=== PATIENT | female | born 1985 | race Caucasian/White ===

== ENCOUNTER 2021-11-18 18:06 | Observation (INO) | payer MEDICAID, SELFPAY ==
[2021-11-18 17:30] VITALS: BMI 34.0
--- NOTE | 2021-11-18 18:10 | PCM.HP.STD ---
HPI - General General Date of Admission: 11/18/21 HPI Narrative RADHA VALLE, is a 35 F who presents with a large left UPJ stone 1 cm in size, admitted for pain control plan for treatment of stone tomorrow in the OR. pt. agreeable with plan. PFSH Home Medications docusate sodium [Colace] 100 mg PO BID PRN PRN #60 capsule 04/16/16 [Rx Last Taken Unknown] oxycodone 5 - 10 mg PO Q4H PRN PRN #30 tablet 04/16/16 [Rx Last Taken Unknown] vit,[id number] [Prenatabs FA] 1 tab PO DAILY 04/16/16 [History Last Taken 04/15/16 09:00] Allergy/AdvReac Type Severity Reaction Status Date / Time No Known Allergies Allergy Verified 04/16/16 00:03 Social History Smoking Status: Current every day smoker tobacco type: cigarettes ROS Constitutional Constitutional: Denies chills, fever(s) or malaise Eyes Eyes: Denies blurry vision or change in vision ENT HEENT: Reports none Cardiovascular Cardiovascular: Denies chest pain or palpitations Respiratory/Chest Respiratory/Chest: Denies cough or shortness of breath with exertion Gastrointestinal Gastrointestinal: Denies abdominal pain, constipation or diarrhea Musculoskeletal Musculoskeletal: Denies back pain, joint stiffness or joint swelling Integumentary Integumentary: Denies dry skin, jaundice, lesions or rash Neurologic Neurologic: Denies confusion, syncope or weakness Psychiatric Psychiatric: Reports none; Denies anxiety or depression Endocrine Endocrinology: Denies excessive sweating, fatigue or flushing Hematologic/Lymphatic Hematologic/Lymphatic: Denies anemia, easy bleeding or easy bruising Vital Signs Vital Signs Vital Signs: Weight Weight: 84.55 kg Body Mass Index (BMI) 34.0 Physical Exam Const alert and oriented x3 General Appearance: cooperative HEENT normocephalic, head/scalp atraumatic, EAC's normal and TM's normal bilaterally Eyes PERRL and EOMs intact bilaterally Pupil: sluggish Neck no lymphadenopathy, supple and no JVD General: trachea midline Lymph Lymphatic: no lymphadenopathy noted, lymphedema and lymphadenopathy Resp normal respiratory effort, normal air movement and clear to auscultation bilaterally Cardio regular rate, regular rhythm and peripheral pulses 2+ throughout GI soft to palpation, non-tender and non-distended Extremity normal capillary refill and no clubbing, cyanosis or edema General Extremity: no tenderness to palpation of joints or extremities Skin no rashes or lesions noted General Skin Exam: turgor normal Lesions: no lesions Rashes: no rashes Neuro CN's II-XII intact bilaterally Speech: speech normal Motor Exam: strength 5/5 throughout; Negative for general weakness Psych thought process normal, cooperative and affect normal Appearance: appropriate Assessment & Plan Assessment/Plan (1) Kidney stone on left side:
[2021-11-18] MEDS: Ondansetron 4 MG/2 ML Vial IV (18:26)
[2021-11-18] MEDS: Morphine 2 MG/ML Syringe IV (18:26)
[2021-11-18] MEDS: 0.9% Saline Lock 10 ML Syringe IV (18:27)
--- NOTE | 2021-11-18 18:35 | RAD_ITS ---
STUDY: X-RAY - ABDOMEN/PELVIS REASON FOR EXAM: Female, 35 years old. stone TECHNIQUE: 2 views of the abdomen. COMPARISON: None. FINDINGS: Normal visualized lung bases. There is an unremarkable bowel gas pattern. Scattered gas and fecal material noted within the colon. No distended small bowel loops are noted. Hepatic and splenic shadows are not enlarged. Excreted contrast noted within the intrarenal collecting systems and within the decompressed urinary bladder. Right intrarenal collecting system is not dilated. On the left, there is moderate pelvocaliectasis secondary to a 12 x 9 mm ovoid stone which lies at the ureteropelvic junction. No ureteral dilatation is seen. Surgical clips and calcified phlebolith are noted within the pelvis. Degenerative disc disease and facet arthritis noted at the L5/S1 level. RAD/Abdomen Single View IMPRESSION: Moderate left hydronephrosis due to a 12 x 9 mm stone which lies at the ureteropelvic junction. Electronically Signed: Jose Buck MD at 3:42 EDT ,
[2021-11-18 20:07] VITALS: BP 134/69; PULSE 77; RESP 16; TEMP 36.9; O2SAT 100
[2021-11-18 21:37] LABS: Internal QC Validated? YES +Cl - CLEAR BKGD; Pregnancy, Urine Negative Negative
[2021-11-18] MEDS: 0.9% Normal Saline 1,000 ML 50 ML IV (23:25)
[2021-11-19] VITALS (9 sets, daily range): BP systolic 111–139; BP diastolic 78–90; PULSE 67–101; RESP 16–18; TEMP 36.6–36.9; O2SAT 97–100; BMI 34.0
--- NOTE | 2021-11-19 12:13 | NURSING ---
Patient off unit to AC at this time.
[2021-11-19] MEDS: Cefazolin 2 GM in 0.9% Normal Saline 100 ML IV (14:32)
--- NOTE | 2021-11-19 15:03 | OP.PCM_ITS ---
Report of Operation Date of Procedure: 11/19/21 Pre-Operative Diagnosis: left UPJ stone 10mm Post-Operative Diagnosis: same Surgery/Procedure Performed:: cystoscopy left stent placement and left ESWL Description of Surgical Findings:: Patient presents to the hospital for treatment of a kidney stone with shockwave lithotripsy. In the preoperative area and x-ray was done to confirm the location of the stone. The x-ray was reviewed and the stone location was reviewed. In the preoperative setting I spoke with the patient regarding the treatment of the stone how the treatment would be conducted and the expectations after surgery. The patient understands there is a risk of bleeding and infection. Also discussed the very rare risk of hematoma or damage to the kidney. We also discussed the risk that the shockwave machine will fail to break the stone adequately and that the patient may need other surgical procedures. We also discussed the possibility that the patient may need a stent after the procedure. After reviewing the procedure with the patient, the patient is signed the consent form all the patient's questions were addressed and was taken back to the operating room for treatment of a kidney stone. Patient was taken back to the operating room after induction of general anesthesia, the patient was placed in dorsolithotomy position. The urethra and genitals were prepped and draped in usual sterile fashion. Using a 21 English rigid cystourethroscope the entire length of the urethra was normal then went into the bladder. Identified the trigone the left and right ureteral orifice. I then cannulated the Left orifice and advanced a wire up into the kidney. I then backloaded a 5 English open ended catheter over the wire and injected contrast to delineate the anatomy. After the retrograde was performed I then used fluoroscopic images and guidance to advanced a wire up into the kidney and over the 0.038 glidewire I advanced a 6 English by 26 cm double pigtail stent. I then pulled the 0.038 Glidewire off and the stent coiled in the kidney bladder good position. The bladder was then drained. We confirmed the position of the stent by fluoroscopy. We then identified the side of the treatment and the patient side of treatment had been marked by my initials. The patient underwent general anesthetic and was placed supine on the lithotripter table. We then used fluoroscopy to identify the stone on the Left side. We then positioned the patient under the lithotripter and we used triangulation technique to identify the location of the stone and then we made sure that the stone was engaged in the F2 focal point of F2 Donier lithoprior machine. Once the patient was positioned appropriately and the stone was identified and placed in the F2 focal point of the lithotripter machine we then proceeded with shockwave lithotripsy. In the beginning the shockwave was delivered at a rate of 90 shocks per minute, we monitor the EKG for any ectopy. The power was slowly increased to 5 kV and subsequently at the 7 kV. We then proceeded with the treatment we move the therapy had around during the treatment to make sure the stone stayed in the F2 focal point during the entire treatment and after 2500 shockwaves were delivered to the stone under fluoroscopic guidance the treatment was completed. The patient was given instructions to call the office to make an a follow-up appointment with an xray to evaluate the success of the treatment, pateint understands that its possible the stones may need another procedure.At this point the patient's anesthetic was reversed patient was extubated and taken back to the PACU in stable condition. Surgeon: el Type of Anesthesia: General Drains: stent left 6fr x 26cm Admit VTE Documentation VTE Present on Admission: No VTE Mechan Device Prophylaxis: SCD's VTE Pharm Prophylaxis ordered?: No
--- NOTE | 2021-11-19 15:06 | PCM.DC.SUM ---
Providers Date of Admission: 11/18/21 Reason For Visit: LEFT KIDNEY STONE Diagnosis Discharge Diagnosis (1) Kidney stone on left side: Status: Acute Code(s): N20.0 - Calculus of kidney Medications at Discharge Home Medications ciprofloxacin HCl [Cipro] 500 mg PO BID #6 tab 11/19/21 oxycodone-acetaminophen 1 tab PO Q6H PRN 7 Days #14 tab 11/19/21 Hospital Course Summary of Care Provided Hospital Course: admitted for kidney stone had ESWL and stent, stone broke up well discharger camilo today follow up in my office to remove stent Weight / BMI Weight Weight: 84.55 kg Body Mass Index (BMI) 34.0 ABG / Lab / Microbiology Data Laboratory: Laboratory Results - last 24 hr 11/18/21 21:17: Urine Test Negative Radiography Diagnostic Testing: Radiology Impression KUB X-Ray 11/18/21 18:35 IMPRESSION: Moderate left hydronephrosis due to a 12 x 9 mm stone which lies at the ureteropelvic junction. Electronically Signed: Jose Buck MD at 3:42 EDT , Meaningful Use Info Meaningful Use Diagnoses (Choose all that apply): None applicable Discharge Plan Admission Admit Date/Time: 11/18/21 18:06 Primary Reason for Your Visit: left kidney stone Attending Provider: Amaury Moulton Instructions Patient Instructions: Shock Wave Lithotripsy Discharge Orders/Prescriptions Prescriptions: New ciprofloxacin HCl [Cipro] 500 mg tablet 500 mg PO BID Qty: 6 RF: 0 oxycodone-acetaminophen 5-325 mg tablet 1 tab PO Q6H PRN (Reason: pain) 7 Days Qty: 14 RF: 0 Referrals / Follow Up: Amaury Moulton MD [STAFF PHYSICIAN] - Disposition Discharge Orders: Discharge Patient (Routine); Ordered 11/19/21 Ordered By: Dr. Amaury Moulton
--- NOTE | 2021-11-19 15:07 | PCM.DC ---
Discharge Instructions Diet Discharge Diet: No restrictions Activity Discharge Activity: Return to Normal Activity and May Not Drive (while taking narcotic pain medications.) Dressing / Incision Call your doctor if you observe: Fever of 101 or Higher Follow Up Care Please Follow Up With: Amaury Moulton MD When: Call [phone] for an appointment Test Results: Test results from this visit will be discussed in further detail at your follow-up appointment, if applicable. Discharge Plan Admission Admit Date/Time: 11/18/21 18:06 Primary Reason for Your Visit: left kidney stone Attending Provider: Amaury Moulton Instructions Patient Instructions: Shock Wave Lithotripsy Discharge Orders/Prescriptions Prescriptions: New ciprofloxacin HCl [Cipro] 500 mg tablet 500 mg PO BID Qty: 6 RF: 0 oxycodone-acetaminophen 5-325 mg tablet 1 tab PO Q6H PRN (Reason: pain) 7 Days Qty: 14 RF: 0 Referrals / Follow Up: Amaury Moulton MD [STAFF PHYSICIAN] - Disposition Discharge Orders: Discharge Patient (Routine); Ordered 11/19/21 Ordered By: Dr. Amaury Moulton
== END 2021-11-19 19:04 | disposition home or self-care (01) ==
PROVIDERS: Admitting Provider Urology; Visit Provider Urology
PROC: (CPT 50590; principal; 2021-11-19 13:20)
DX: N13.2 Hydronephrosis with renal and ureteral calculous obstruction (principal); E11.51 Type 2 diabetes mellitus with diabetic peripheral angiopathy without gangrene; J44.9 Chronic obstructive pulmonary disease, unspecified; F17.210 Nicotine dependence, cigarettes, uncomplicated; K21.9 Gastro-esophageal reflux disease without esophagitis; Z79.899 Other long term (current) drug therapy; Z79.82 Long term (current) use of aspirin; Z79.84 Long term (current) use of oral hypoglycemic drugs; I10 Essential (primary) hypertension; I25.10 Atherosclerotic heart disease of native coronary artery without angina pectoris; E78.5 Hyperlipidemia, unspecified; G47.33 Obstructive sleep apnea (adult) (pediatric); G25.81 Restless legs syndrome; M79.89 Other specified soft tissue disorders; R06.02 Shortness of breath; I25.2 Old myocardial infarction
CPT/HCPCS: 50590; 00873; 52332; C1769; C2617; 74018; 81025; 96374; 96375; 97802; 99218; J7030; A4216; G0378; J2405

== ENCOUNTER 2022-06-30 10:36 | Day surgery (SDC) | payer MEDICAID, SELFPAY ==
[2022-06-30] VITALS (8 sets, daily range): BP systolic 108–138; BP diastolic 48–83; PULSE 74–93; RESP 16–18; TEMP 36.5–37; O2SAT 98–100; BMI 35.3
[2022-06-30 11:03] LABS: Internal QC Validated? YES +Cl - CLEAR BKGD; Pregnancy, Urine Negative Negative
[2022-06-30] MEDS: Lactated Ringers 1,000 ML 15 ML IV (11:14)
[2022-06-30 11:18] LABS: Hematocrit 42.1 % (37-47); Mean Corp Hgb Conc 33.3 g/dL (32-36); Mean Corpuscular Hgb 30.2 pg (27.0-32.0); Mean Corpuscular Volume 90.9 fL (81-99); Mean Platelet Vol. 9.7 fl (6.2-12.0); Platelet Count 317 K/mm3 (150-450); RBC Distribution Width SD 39.8 fl (35.1-43.9); Red Blood Count 4.63 M/mm3 (4.2-5.4); White Blood Count 6.6 K/mm3 (4.4-11.0)
--- NOTE | 2022-06-30 12:13 | PCM.DC ---
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 Dressing / Incision Call your doctor if you observe: Fever of 101 or Higher, Coldness, Increased Pain, Numbness or Tingling, Change in Color, Inability to urinate, Inability to have a bowel movement, Using more than 1 pad per hour, Shortness of breath, Dizziness, Fainting spells, Swelling in the ankles, Chest pain, Increased palpitations (irregular heartbeat), Calf discomfort and Uncontrolled pain Follow Up Care Please Follow Up With: Jie Garcia DO When: 1-2 weeks post op Test Results: Test results from this visit will be discussed in further detail at your follow-up appointment, if applicable. Discharge Plan Admission Primary Reason for Your Visit: surgery Attending Provider: Jie Garcia Primary Care Provider: Gloria Tomlinson Primary Discharge Orders/Prescriptions Prescriptions: New ibuprofen 600 mg tablet 600 mg PO Q6H PRN (Reason: pain) Qty: 30 0RF oxycodone-acetaminophen [Percocet] 5-325 mg tablet 1 tab PO Q8H PRN (Reason: pain) 7 Days Qty: 5 0RF Continued ascorbic acid (vitamin C) [Vitamin C] 500 mg Tablet 500 mg PO DAILY Referrals / Follow Up: Care Physician,Gloria Primary [Primary Care Provider] - Disposition Disposition (needs filled in before D/C Order can be placed): Home, Self Care
--- NOTE | 2022-06-30 12:15 | EMB_PTH ---
PATIENT: ARDHA VALLE LOC: [facility] [place] U#:[id number] AGE/SX: 36/F ROOM: RE06/30/[address]: Dr. Jie Garcia, : 1985 BED: DIS: 06/30/2022 SPEC #: [id number] RECD: 06/30/22 16:01 STATUS: ALEXA MARY #: [id number] MORIAH: 06/30/22 12:[address]: Jie Garcia DEPT: SURGICAL PATHOLOGY RECD BY: Mini Maldonado ENTERED: 07/01/22 11:40 SP TYPE: ENDOM BX/C DESTINEE DR: Gloria Primary Care Phys Tissues: Endometrium, NOS Procedures: Surgery Specimen Level IV HEADER OPERATION: Hysteroscopy, D & C Elin, endometrial ablation PRE-OP DIAGNOSIS: Menorrhagia TISSUE SUBMITTED: Endometrial curettings MICROSCOPIC DIAGNOSIS Endometrium, curettings: Mildly disordered proliferative endometrium. AM:norberto 07/04/2022 MICROSCOPIC DESCRIPTION Slides are reviewed. GROSS DESCRIPTION Received in fixative is one container labeled with the patient's name and designated endometrial curettings. The specimen consists of multiple irregular fragments of bonilla-pink soft tissue that in aggregate measure 2.5 x 2 x 0.2 cm. The specimen is totally submitted in one cassette. / SJ:rg 07/01/2022 TC:5 CPT: 69194
[2022-06-30] MEDS: Lidocaine 2% /Epi 1:100 (20ml) 20 ML VIAL (12:30)
--- NOTE | 2022-06-30 12:41 | OP.PCM_ITS ---
Problems Associated Problem List Diagnoses (1) Menorrhagia: Report of Operation Date of Procedure: 06/30/22 Pre-Operative Diagnosis: Menorrhagia Post-Operative Diagnosis: As above Surgery/Procedure Performed:: Hysteroscopy, D&C, endometrial ablation Description of Surgical Findings:: Normal appearing uterine cavity and bilateral tubal ostia visualized Surgeon: Jie Garcia reed or wind instrument tuner: None Type of Anesthesia: MAC Special Medications: None Specimen's removed: Endometrial curettings Drains: None Estimated Blood Loss (mL): < 50 cc Fluids Replaced: 600 cc Description of Procedure: Indications: Patient with a history of menorrhagia and possible adenomyosis on pelvic ultrasound. She declines medical management and treatment options. She is not a candidate for estrogen-containing contraception given she is a smoker. She understands there is a high risk of failure with the ablation given age and adenomyosis, but she requests to proceed after discussion of risks, benefits, alternatives Procedure: Patient was taken to the operating room where MAC anesthesia was induced. She was prepped and draped in the dorsal lithotomy position using yellowfin stirrups. A weighted speculum was placed in the vagina. The anterior lip of the cervix was grasped with a single-tooth tenaculum. The cervix was serially dilated to accommodate the hysteroscope. The hysteroscope was advanced to the fundus of the uterus and distended with normal saline as distention media. Bilateral tubal ostia were visualized. Uterine cavity was normal- appearing. The endometrium was normal-appearing. Hysteroscope was removed and upon removal the cervical canal was normal appearing. A sharp curettage was performed for a small amount of tissue. Endometrial curettings were sent to pathology for review. Uterus sounded to 9 cm. The cervical length was 3 cm. The uterine cavity was set to 6 cm. The Elin device associate financial representative was present for the case. The Elin ablation device was introduced into the uterine cavity, and an endometrial ablation was performed in typical sterile fashion. Passed cavity assessment test on first attempt. After the ablation was completed, the Elin device was removed. All instruments removed from the vagina. Bleeding was very scant. A vaginal sweep was performed. The patient was taken to the recovery in stable condition. Instrument and sponge counts were correct. Grafts/Implants Used: None Procedure Start Time: 12:27 Procedure Stop Time: 12:39 Complications None Admit VTE Documentation VTE Present on Admission: No VTE Mechan Device Prophylaxis: SCD's
== END 2022-06-30 15:10 | disposition home or self-care (01) ==
LOC: SDC 10:39 → AC 10:41
PROVIDERS: Referring Provider Obstetrics & Gynecology; Visit Provider Obstetrics & Gynecology
PROC: 0U5B8ZZ Destruction of Endometrium, Via Natural or Artificial Opening Endoscopic (ICD-10-PCS; CPT 58558; principal; 2022-06-30 12:00)
DX: N80.03 Adenomyosis of the uterus (principal); N92.0 Excessive and frequent menstruation with regular cycle; M79.7 Fibromyalgia; F17.290 Nicotine dependence, other tobacco product, uncomplicated; E66.9 Obesity, unspecified; Z68.35 Body mass index [BMI] 35.0-35.9, adult; Z79.899 Other long term (current) drug therapy
CPT/HCPCS: 58563; 81025; 85027; 86850; 86900; 86901; 88305; J7120; J2405